=== PATIENT | female | born 1945 | race African-American/Black ===

== ENCOUNTER 2020-06-22 09:31 | Emergency (ER) | payer BC, MEDICAID ==
[~2020-06-22] VITALS: Ht 165.1 cm; Wt 80.0 kg
[2020-06-22] MEDS ORDERED: ONDANSETRON HCL 4MG/2ML INJ IV STA (10:10)
[2020-06-22 10:49] LABS: BASOPHILS % 0.9 % (0.0-2.0); EOSINOPHILS % 2.2 % (0.0-5.0); HEMATOCRIT. 31.4 % (36.0-48.0); LYMPHOCYTES % 24.8 % (20.0-50.0); MEAN CORPUSCULAR HEMOGLOBIN 25.4 pg (28.0-32.0); MEAN CORPUSCULAR VOLUME 79.7 fL (81.0-99.0); MEAN PLATELET VOLUME 7.2 fl (7.4-10.4); MONOCYTES % 10.2 % (2.0-8.0); NEUTROPHILS % 61.9 % (40.0-76.0); PLATELET 344 x1000/uL (130-400); RED BLOOD CELL COUNT 3.94 mill/uL (4.2-5.4); RED CELL DISTRIBUTION WIDTH 15.7 % (11.6-14.6)
[2020-06-22 10:57] LABS: CHLORIDE 109 mEq/L (98-107)
[2020-06-22 11:06] LABS: PROTHROMBIN TIME 10.8 sec (9.6-11.0)
[2020-06-22] MEDS ORDERED: ASPIRIN 325MG EC TABLET PO ONE (12:30)
[2020-06-22] MEDS ORDERED: LORAZEPAM 1MG TABLET PO ONE (12:30)
[2020-06-22] MEDS ORDERED: DILTIAZEM HCL 5MG/ML 5ML VIAL IV ONE (14:30)
[2020-06-22] MEDS ORDERED: DILTIAZEM HCL 120MG CAPSULE CD 24HR PO ONE (14:30)
[2020-06-22 18:00] VITALS: BP 129/56
== END 2020-06-22 18:35 | disposition short-term general hospital (02) ==
LOC: ER 09:47 → CANBEDREQ 06-24 08:57
DX: I48.91 Unspecified atrial fibrillation (principal); R53.1 Weakness; G93.49 Other encephalopathy; I10 Essential (primary) hypertension; Z86.73 Personal history of transient ischemic attack (TIA), and cerebral infarction without residual deficits; Z88.6 Allergy status to analgesic agent; Z91.041 Radiographic dye allergy status
CPT/HCPCS: 36415; 70450; 71045; 80053; 84484; 85025; 85610; 93005; 96374; 96375; 99285; J2405; J3490